=== PATIENT | female | born 1985 | race Caucasian/White ===

== ENCOUNTER → 2021-02-04 | Outpatient (CLI) | payer MEDICARE, MEDICAID ==
[~2021-02-04] MED LIST: BENZ1TAB7 PO; CYCL-394 PO; HYDR200T84 PO; PNV1TABL7 PO
== END | disposition home or self-care (01) ==
LOC: VAS 15:01
PROVIDERS: ATTEND Family Medicine
DX: R60.0 Localized edema (principal)
CPT/HCPCS: 93970

== ENCOUNTER 2021-09-26 17:01 | Emergency (ER) | payer MEDICARE, MEDICAID ==
[~2021-09-26] VITALS: Ht 170.2 cm; Wt 127.3 kg
[2021-09-26] MEDS ORDERED: normal saline 1000ML IV soln IV ONE (17:30)
[2021-09-26 17:56] LABS: BASOPHILS % (AUTO) 0.4 % (0-1); EOSINOPHILS % (AUTO) 0.2 % (0-6); HEMATOCRIT 28.1 % (35.0-45.0); HEMOGLOBIN 9.5 g/dl (12.0-16.0); MEAN CORPUSCULAR HEMOGLOBIN 33.2 PG (27.0-31.0); MEAN CORPUSCULAR VOLUME 97.6 FL (78-98); MEAN PLATELET VOLUME 8.6 FL (7.4-10.4); MONOCYTES # (AUTO) 0.9 X10'3 (0-0.9); MONOCYTES % (AUTO) 14.1 % (2-12); NEUTROPHILS # (AUTO) 4.3 X10'3 (1.8-7.7); NEUTROPHILS % (AUTO) 69.3 % (42-75); PLATELET COUNT 103 X10'3 (140-440); RED BLOOD COUNT 2.88 X10'6 (4.20-5.60); RED CELL DISTRIBUTION WIDTH 20.1 % (11.5-14.5); WHITE BLOOD COUNT 6.2 X10'3 (4.5-11.0)
[2021-09-26 18:19] LABS: ALANINE AMINOTRANSFERASE 58 U/L (12-78); ALBUMIN 2.7 G/DL (3.4-5.0); ALKALINE PHOSPHATASE 112 IU/L (46-116); ANION GAP 15 (8-16); ASPARTATE AMINO TRANSFERASE 234 U/L (10-37); BILIRUBIN,TOTAL 10.5 MG/DL (0.1-1.0); BLOOD UREA NITROGEN 10 MG/DL (7-18); BUN/CREATININE RATIO 13.2 (6.6-38.0); CALCIUM 8.6 MG/DL (8.5-10.1); CHLORIDE 87 MMOL/L (99-107); CREATININE 0.76 MG/DL (0.40-0.90); ETHANOL 0.191 GM/DL (0.0-0.010); GLUCOSE 77 MG/DL (70-104); SODIUM 133 MMOL/L (135-145); TOTAL CARBON DIOXIDE 31.3 MMOL/L (24-32); eGFR 86 ML/MIN
[2021-09-26 18:22] LABS: ALBUMIN/GLOBULIN RATIO 0.5 (1.1-1.5); TOTAL PROTEIN 8.6 G/DL (6.4-8.2)
[2021-09-26 18:27] LABS: POTASSIUM 2.8 MMOL/L (3.5-5.1)
--- NOTE | 2021-09-26 18:27 | NUR ---
patient has a critical low k+2.8
[2021-09-26 20:28] LABS: PLATELET ESTIMATE DECREASED
[2021-09-26 20:29] LABS: ANISOCYTOSIS 3+
[2021-09-26 20:30] LABS: POLYCHROMASIA FEW; TARGET CELLS FEW; TEAR DROP CELLS FEW
[2021-09-26 20:42] LABS: CLARITY,URINE SLIGHTLY CLOUDY (Clear); GLUCOSE, URINE 100 mg/dl (Neg); KETONES,URINE 15 mg/dl (Neg); LEUKOCYTE ESTERASE ,URINE NEGATIVE (Neg); OCCULT BLOOD,URINE NEGATIVE (Neg); PROTEIN,URINE 100 mg/dl (Neg); UROBILINOGEN,URINE >=8.0 E.U/dL (0.2-1.0)
[2021-09-26 20:52] LABS: COLOR,URINE DARK YELLOW (Yellow); UA COLLECTION TYPE NON-SPECIFIED
[2021-09-26 20:54] LABS: URINE AMPHETAMINE SCREEN NEGATIVE (Neg); URINE BARBITUATE SCREEN NEGATIVE (Neg); URINE BENZODIAZEPINES SCREEN NEGATIVE (Neg); URINE CANNABINOID SCREEN POSITIVE (Neg); URINE COCAINE SCREEN NEGATIVE (Neg); URINE METHADONE SCREEN NEGATIVE (Neg); URINE OPIATE SCREEN NEGATIVE (Neg); URINE PHENCYCLIDINE SCREEN NEGATIVE (Neg)
[2021-09-26 20:56] LABS: NITRITES, URINE NEGATIVE (Neg)
[2021-09-26 20:58] LABS: BACTERIA,URINE 1+ /HPF (Neg); WBC,URINE 0-4 /HPF (0-4)
[2021-09-26 20:59] LABS: MUCUS STRANDS FEW /LPF (Neg); SQUAMOUS EPITHELIAL CELL,UR MANY /LPF (FEW); TRANSITIONAL EPI CELLS,URINE FEW /HPF
[2021-09-26] MEDS ORDERED: LIDOcaine 1% W/epiNEPHrine 1:200,000 10ml vial IJ ONE (21:10)
[2021-09-26] MEDS ORDERED: LIDOcaine 1% w/EPI 1:100,000 30ml vial (MDV) IJ ONE (21:10)
[2021-09-26] MEDS ORDERED: pantoprazole 40MG/NS 100ML BAG 100 ML IV STA ×3 (21:23→21:28)
[2021-09-26] MEDS ORDERED: pantoprazole 40MG/NS 100ML BAG 100 ML IV SCH (21:29)
[2021-09-26] MEDS ORDERED: LIDOCAINE 2% w/EPI 1:100:000 30mL injection MDV**cath lab 1 only INJ ONE (21:30)
--- NOTE | 2021-09-26 22:34 | NUR ---
placed pat on 2L NC - O2 dropping to 88-90% while lying down, pt states she uses a CPAP.
[2021-09-26] MEDS: potassium Cl 10 mEq/100mL bag IV SCH (23:00)
[2021-09-27] MEDS: potassium Cl 10 mEq/100mL bag IV SCH
[2021-09-27] MEDS ORDERED: potassium chloride 10mEq ER tablet PO ONE (00:15)
[2021-09-27 00:38] VITALS: BP 112/78
[2021-09-28] MEDS ORDERED: POTA-188 PO (17:56)
[2021-10-01] MEDS ORDERED: PRAZ1CAP5 PO (01:45)
[2021-10-01] MEDS ORDERED: DULO30CA52 PO (01:45)
[2021-10-01] MEDS ORDERED: HYDR-3686 PO (01:45)
[2021-10-01] MEDS ORDERED: PANT20TA18 PO (01:45)
[2021-10-01] MEDS ORDERED: LURA60TA PO (01:45)
[2021-10-01] MEDS ORDERED: TRAZ150T78 PO (01:45)
[2021-10-01] MEDS ORDERED: FURO40TA4 PO (01:45)
== END 2021-09-27 00:41 | disposition home or self-care (01) ==
LOC: ER 17:02
DX: S01.81XA Laceration without foreign body of other part of head, initial encounter (principal); R53.1 Weakness; K92.0 Hematemesis; K92.1 Melena; D64.9 Anemia, unspecified; F12.90 Cannabis use, unspecified, uncomplicated; Z72.89 Other problems related to lifestyle; Z91.048 Other nonmedicinal substance allergy status; Z79.899 Other long term (current) drug therapy; W18.2XXA Fall in (into) shower or empty bathtub, initial encounter; Y93.89 Activity, other specified; Y92.89 Other specified places as the place of occurrence of the external cause; Y99.8 Other external cause status
CPT/HCPCS: 12002; 36415; 70450; 70486; 80053; 80305; 80320; 81001; 82140; 82948; 85008; 85025; 85610; 86885; 86900; 86901; 93005; 96361; 96365; 96366; 96376; 99285; C9113; J3490; J7030; 96374

== ENCOUNTER 2021-09-28 12:41 | Emergency (ER) | payer MEDICARE, MEDICAID ==
[~2021-09-28] VITALS: Ht 170.2 cm; Wt 127.3 kg
[2021-09-28 14:00] LABS: BASOPHILS % (AUTO) 0.3 % (0-1); EOSINOPHILS % (AUTO) 0.5 % (0-6); HEMATOCRIT 27.8 % (35.0-45.0); HEMOGLOBIN 9.3 g/dl (12.0-16.0); LYMPHOCYTES # (AUTO) 0.8 X10'3 (1.1-4.8); LYMPHOCYTES % (AUTO) 10.9 % (21-51); MEAN CORPUSCULAR HEMOGLOBIN 32.7 PG (27.0-31.0); MEAN CORPUSCULAR HGB CONC 33.4 g/dL (33.0-36.5); MEAN CORPUSCULAR VOLUME 98.2 FL (78-98); MEAN PLATELET VOLUME 8.7 FL (7.4-10.4); MONOCYTES # (AUTO) 0.9 X10'3 (0-0.9); MONOCYTES % (AUTO) 12.2 % (2-12); NEUTROPHILS # (AUTO) 5.7 X10'3 (1.8-7.7); NEUTROPHILS % (AUTO) 76.1 % (42-75); PLATELET COUNT 110 X10'3 (140-440); RED BLOOD COUNT 2.83 X10'6 (4.20-5.60); RED CELL DISTRIBUTION WIDTH 21.6 % (11.5-14.5); WHITE BLOOD COUNT 7.4 X10'3 (4.5-11.0)
[2021-09-28 14:19] LABS: ALANINE AMINOTRANSFERASE 62 U/L (12-78); ALBUMIN 2.8 G/DL (3.4-5.0); ALKALINE PHOSPHATASE 113 IU/L (46-116); ANION GAP 20 (8-16); ASPARTATE AMINO TRANSFERASE 224 U/L (10-37); BILIRUBIN,TOTAL 11.7 MG/DL (0.1-1.0); BLOOD UREA NITROGEN 11 MG/DL (7-18); BUN/CREATININE RATIO 15.7 (6.6-38.0); CALCIUM 8.6 MG/DL (8.5-10.1); CHLORIDE 86 MMOL/L (99-107); GLUCOSE 58 MG/DL (70-104); LIPASE 652 U/L (73-393); MAGNESIUM 1.4 MG/DL (1.5-2.4); SODIUM 131 MMOL/L (135-145); TOTAL CARBON DIOXIDE 25.2 MMOL/L (24-32); eGFR > 90 ML/MIN
[2021-09-28 14:20] LABS: ALBUMIN/GLOBULIN RATIO 0.4 (1.1-1.5); TOTAL PROTEIN 9.1 G/DL (6.4-8.2)
[2021-09-28 14:23] LABS: POTASSIUM 2.9 MMOL/L (3.5-5.1)
[2021-09-28 14:26] LABS: ANISOCYTOSIS 3+; PLATELET ESTIMATE DECREASED; TARGET CELLS 1+
[2021-09-28] MEDS ORDERED: potassium Cl 20 mEq SR tablet PO STA (15:51)
[2021-09-28] MEDS ORDERED: normal saline 1000ML IV soln IVB ONE (15:55)
[2021-09-28 16:02] LABS: CLARITY,URINE CLOUDY (Clear); COLOR,URINE ORANGE (Yellow); UA COLLECTION TYPE NON-SPECIFIED
[2021-09-28 16:09] LABS: BACTERIA,URINE 3+ /HPF (Neg); HYALINE CASTS >30 /LPF (NEGATIVE); MUCUS STRANDS MANY /LPF (Neg); SQUAMOUS EPITHELIAL CELL,UR MANY /LPF (FEW); TRANSITIONAL EPI CELLS,URINE MANY /HPF
[2021-09-28 17:32] VITALS: BP 119/54
[2021-09-28] MEDS ORDERED: POTA-188 PO (17:56)
[2021-10-01] MEDS ORDERED: PRAZ1CAP5 PO (01:45)
[2021-10-01] MEDS ORDERED: LURA60TA PO (01:45)
[2021-10-01] MEDS ORDERED: PANT20TA18 PO (01:45)
[2021-10-01] MEDS ORDERED: HYDR-3686 PO (01:45)
[2021-10-01] MEDS ORDERED: FURO40TA4 PO (01:45)
[2021-10-01] MEDS ORDERED: DULO30CA52 PO (01:45)
[2021-10-01] MEDS ORDERED: TRAZ150T78 PO (01:45)
[2021-10-06] MEDS ORDERED: thiamine tablet PO (10:24)
[2021-10-06] MEDS ORDERED: LEVO500T90 PO (10:24)
[2021-10-06] MEDS ORDERED: FOLI1TAB27 PO (10:24)
== END 2021-09-28 18:08 | disposition home or self-care (01) ==
LOC: ER 12:42
DX: E86.0 Dehydration (principal); E87.6 Hypokalemia; D64.9 Anemia, unspecified; R53.1 Weakness; R53.83 Other fatigue; R11.10 Vomiting, unspecified; G89.29 Other chronic pain; F41.9 Anxiety disorder, unspecified; F31.9 Bipolar disorder, unspecified; F12.90 Cannabis use, unspecified, uncomplicated; Z86.19 Personal history of other infectious and parasitic diseases; Z90.49 Acquired absence of other specified parts of digestive tract; Z72.89 Other problems related to lifestyle; Z88.8 Allergy status to other drugs, medicaments and biological substances; Z79.899 Other long term (current) drug therapy
CPT/HCPCS: 36415; 80053; 81001; 82140; 83690; 83735; 85008; 85025; 85610; 93005; 99284; J7030

== ENCOUNTER 2021-10-12 08:47 | Emergency (ER) | payer MEDICARE, MEDICAID ==
[~2021-10-12] VITALS: Ht 170.2 cm; Wt 136.4 kg
[~2021-10-12 08:47] MED LIST changes: -BENZ1TAB7 PO; -CYCL-394 PO; +DULO30CA52 PO; +FOLI1TAB27 PO; +FURO40TA4 PO; +HYDR-3686 PO; +LEVO500T90 PO; +LURA60TA PO; +PANT20TA18 PO; -PNV1TABL7 PO; +PRAZ1CAP5 PO; +TRAZ150T78 PO; +thiamine tablet PO
[2021-10-12 09:03] VITALS: BP 106/58
[2021-10-12 10:52] LABS: BASOPHILS % (AUTO) 0.3 % (0-1); EOSINOPHILS % (AUTO) 0 % (0-6); HEMATOCRIT 28.2 % (35.0-45.0); HEMOGLOBIN 9.3 g/dl (12.0-16.0); LYMPHOCYTES # (AUTO) 0.6 X10'3 (1.1-4.8); LYMPHOCYTES % (AUTO) 10.9 % (21-51); MEAN CORPUSCULAR HEMOGLOBIN 33.3 PG (27.0-31.0); MEAN CORPUSCULAR HGB CONC 33.1 g/dL (33.0-36.5); MEAN CORPUSCULAR VOLUME 100.6 FL (78-98); MEAN PLATELET VOLUME 9.3 FL (7.4-10.4); MONOCYTES # (AUTO) 0.5 X10'3 (0-0.9); NEUTROPHILS # (AUTO) 4.8 X10'3 (1.8-7.7); NEUTROPHILS % (AUTO) 80.8 % (42-75); PLATELET COUNT 95 X10'3 (140-440); RED BLOOD COUNT 2.81 X10'6 (4.20-5.60)
[2021-10-12 11:05] LABS: ANISOCYTOSIS 3+; PLATELET ESTIMATE DECREASED; TARGET CELLS 1+
[2021-10-12 11:06] LABS: HYPOCHROMASIA 1+
[2021-10-12 11:12] LABS: ALANINE AMINOTRANSFERASE 38 U/L (12-78); ALBUMIN 2.3 G/DL (3.4-5.0); ALKALINE PHOSPHATASE 92 IU/L (46-116); ASPARTATE AMINO TRANSFERASE 106 U/L (10-37); BLOOD UREA NITROGEN 9 MG/DL (7-18); BUN/CREATININE RATIO 11.4 (6.6-38.0); CALCIUM 8.9 MG/DL (8.5-10.1); CHLORIDE 94 MMOL/L (99-107); CREATININE 0.79 MG/DL (0.40-0.90); GLUCOSE 96 MG/DL (70-104); POTASSIUM 3.2 MMOL/L (3.5-5.1); SODIUM 132 MMOL/L (135-145); eGFR 82 ML/MIN
[2021-10-12 11:25] LABS: ALBUMIN/GLOBULIN RATIO 0.4 (1.1-1.5); ANION GAP 9 (8-16); BILIRUBIN,TOTAL 5.1 MG/DL (0.1-1.0); TOTAL CARBON DIOXIDE 29.3 MMOL/L (24-32); TOTAL PROTEIN 8.2 G/DL (6.4-8.2)
== END 2021-10-12 11:50 | disposition home or self-care (01) ==
LOC: ER 08:47
DX: R60.0 Localized edema (principal); G89.29 Other chronic pain; F41.9 Anxiety disorder, unspecified; F31.9 Bipolar disorder, unspecified; F12.90 Cannabis use, unspecified, uncomplicated; Z86.19 Personal history of other infectious and parasitic diseases; Z90.49 Acquired absence of other specified parts of digestive tract; Z79.2 Long term (current) use of antibiotics; Z72.89 Other problems related to lifestyle; Z88.8 Allergy status to other drugs, medicaments and biological substances; Z79.899 Other long term (current) drug therapy
CPT/HCPCS: 36415; 80053; 83880; 84484; 85008; 85025; 99284

== ENCOUNTER 2022-01-23 19:47 | Emergency (ER) | payer MEDICARE, MEDICAID ==
[~2022-01-23] VITALS: Ht 170.2 cm; Wt 100.9 kg
[~2022-01-23 19:47] MED LIST changes: -LEVO500T90 PO
[2022-01-23 19:53] VITALS: BP 118/67
== END 2022-01-23 22:57 | disposition left against medical advice (07) ==
LOC: ER 19:48
DX: M79.605 Pain in left leg (principal); Z53.21 Procedure and treatment not carried out due to patient leaving prior to being seen by health care provider

== ENCOUNTER 2022-03-02 13:03 | Emergency (ER) | payer MEDICARE, MEDICAID ==
[~2022-03-02] VITALS: Ht 170.2 cm; Wt 100.0 kg
[2022-03-02 13:06] VITALS: BP 135/66
[2022-03-02] MEDS ORDERED: bacitracin 15gm ointment TP ONE (14:40)
[2022-03-02] MEDS ORDERED: LIDOcaine Viscous 15ml cup TP STA (14:45)
== END 2022-03-02 15:22 | disposition home or self-care (01) ==
LOC: ER 13:03
DX: S80.211A Abrasion, right knee, initial encounter (principal); F31.9 Bipolar disorder, unspecified; F12.90 Cannabis use, unspecified, uncomplicated; Z91.09 Other allergy status, other than to drugs and biological substances; Z90.49 Acquired absence of other specified parts of digestive tract; W19.XXXA Unspecified fall, initial encounter; Y93.89 Activity, other specified; Y92.89 Other specified places as the place of occurrence of the external cause; Y99.8 Other external cause status
CPT/HCPCS: 99284

== ENCOUNTER 2022-06-20 23:55 | Emergency (ER) | payer MEDICARE, MEDICAID ==
[~2022-06-20] VITALS: Ht 170.2 cm; Wt 109.1 kg
[2022-06-21] MEDS ORDERED: LIDOCAINE 1%/EPI 1:100,000 inj. 10 ML multi-dose vial IJ ONE (00:10)
[2022-06-21 00:12] VITALS: BP 160/91
[2022-06-21] MEDS ORDERED: TETanus/Pertussis (Acell)/Diphther VAC/PF (Tdap-Adult) 0.5ml syringe IMVAC ONE (00:25)
[2022-06-21] MEDS ORDERED: ondansetron 4mg rapidly disintigrating tab PO ONE (00:50)
== END 2022-06-21 01:30 | disposition home or self-care (01) ==
LOC: ER 23:56
DX: S91.312A Laceration without foreign body, left foot, initial encounter (principal); G89.29 Other chronic pain; F31.9 Bipolar disorder, unspecified; F12.90 Cannabis use, unspecified, uncomplicated; Z91.09 Other allergy status, other than to drugs and biological substances; Z90.49 Acquired absence of other specified parts of digestive tract; X58.XXXA Exposure to other specified factors, initial encounter; Y93.89 Activity, other specified; Y92.89 Other specified places as the place of occurrence of the external cause; Y99.8 Other external cause status
CPT/HCPCS: 12001; 73630; 90471; 90715; 99283; A6446; A6449

== ENCOUNTER 2022-07-29 02:47 | Emergency (ER) | payer MEDICARE, MEDICAID ==
[~2022-07-29] VITALS: Ht 170.2 cm; Wt 85.0 kg
[2022-07-29] MEDS ORDERED: LIDOCAINE 2%/EPI 1:100,000 inj. Multi-dose 20 ML VIAL IJ ONE (03:15)
[2022-07-29 03:38] LABS: BASOPHILS % (AUTO) 0.7 % (0-1); EOSINOPHILS # (AUTO) 0.2 X10'3 (0-0.9); EOSINOPHILS % (AUTO) 2.9 % (0-6); HEMATOCRIT 40.6 % (35.0-45.0); HEMOGLOBIN 13.9 g/dl (12.0-16.0); LYMPHOCYTES # (AUTO) 1.2 X10'3 (1.1-4.8); LYMPHOCYTES % (AUTO) 17.8 % (21-51); MEAN CORPUSCULAR HEMOGLOBIN 32.8 PG (27.0-31.0); MEAN CORPUSCULAR HGB CONC 34.1 g/dL (33.0-36.5); MEAN CORPUSCULAR VOLUME 96.2 FL (78-98); MEAN PLATELET VOLUME 7.4 FL (7.4-10.4); MONOCYTES # (AUTO) 0.7 X10'3 (0-0.9); MONOCYTES % (AUTO) 10.4 % (2-12); NEUTROPHILS # (AUTO) 4.7 X10'3 (1.8-7.7); NEUTROPHILS % (AUTO) 68.2 % (42-75); PLATELET COUNT 154 X10'3 (140-440); RED BLOOD COUNT 4.22 X10'6 (4.20-5.60)
[2022-07-29 03:49] LABS: ALANINE AMINOTRANSFERASE 33 U/L (12-78); ALBUMIN 3.7 G/DL (3.4-5.0); ALBUMIN/GLOBULIN RATIO 0.6 (1.1-1.5); ALKALINE PHOSPHATASE 147 IU/L (46-116); ANION GAP 8 (8-16); ASPARTATE AMINO TRANSFERASE 73 U/L (10-37); BLOOD UREA NITROGEN 9 MG/DL (7-18); BUN/CREATININE RATIO 12.9 (6.6-38.0); CALCIUM 8.8 MG/DL (8.5-10.1); CHLORIDE 102 MMOL/L (99-107); ETHANOL 0.228 GM/DL (0.0-0.010); GLUCOSE 119 MG/DL (70-104); POTASSIUM 3.6 MMOL/L (3.5-5.1); SODIUM 137 MMOL/L (135-145); TOTAL CARBON DIOXIDE 26.7 MMOL/L (24-32); TOTAL PROTEIN 9.8 G/DL (6.4-8.2); eGFR > 90 ML/MIN
[2022-07-29 03:50] LABS: ACETAMINOPHEN < 2.0 UG/ML (10-30)
[2022-07-29 04:30] LABS: URINE HCG NEGATIVE (NEG)
[2022-07-29 04:42] LABS: URINE AMPHETAMINE SCREEN NEGATIVE (Neg); URINE BARBITUATE SCREEN NEGATIVE (Neg); URINE BENZODIAZEPINES SCREEN NEGATIVE (Neg); URINE CANNABINOID SCREEN POSITIVE (Neg); URINE COCAINE SCREEN NEGATIVE (Neg); URINE METHADONE SCREEN NEGATIVE (Neg); URINE OPIATE SCREEN NEGATIVE (Neg); URINE PHENCYCLIDINE SCREEN NEGATIVE (Neg)
[2022-07-29 06:15] VITALS: BP 133/89
--- NOTE | 2022-07-29 11:30 | NUR ---
Pt tearfully asking for Mental Health to talk w/ her. Repeatedly asking to go home, due to needing to take care of her children and her needing to go to work. Packet sent to [facility].
[2022-07-29] MEDS ORDERED: PROP40TA72 PO (12:20)
[2022-07-29] MEDS ORDERED: POTA-192 PO (12:20)
[2022-07-29] MEDS ORDERED: SPIR50TA5 PO (12:20)
--- NOTE | 2022-07-29 12:52 | NUR ---
PT APPEARS TO BE SLEEPING ON LEFT SIDE IN ROOM. PT HAS NO NEEDS AT THIS TIME. WILL CONTINUE TO [facility].
--- NOTE | 2022-07-29 13:25 | NUR ---
Pt continues to tearfully request [facility] for same as previous.
[2022-07-29] MEDS ORDERED: propranolol 40mg tablet PO SCH (14:00)
--- NOTE | 2022-07-29 14:09 | NUR ---
pt requested to text family member on personal phone, tech allowed this by taking pt phone out of belongings bags and allowing them to use it. pt phone case is their wallet as well. tech had the phone/wallet placed into the safe by registration.
--- NOTE | 2022-07-29 14:30 | NUR ---
Pt brought to [facility] from main ER and is in bed resting at this time.
--- NOTE | 2022-07-29 15:06 | NUR ---
Pt is meeting with [facility] Clinician at this time.
--- NOTE | 2022-07-29 15:34 | NUR ---
Pt was not held on 5150 by [facility]. Belongings returned to her from registration and belongings. Pt given discharge instructions and she understands her discharge plan. Pt escorted out of ER to picking her up.
[2022-07-29] MEDS ORDERED: hydroxychloroquine 200mg tablet PO SCH (20:00)
[2022-07-29] MEDS ORDERED: traZODone 150mg tablet PO SCH (21:00)
[2022-07-29] MEDS ORDERED: lurasidone 60mg tablet PO SCH (21:00)
[2022-07-29] MEDS ORDERED: duloxetine 30mg CAPSULE.DR PO SCH (21:00)
[2022-07-29] MEDS ORDERED: prazosin 1mg capsule PO SCH (21:00)
[2022-07-30] MEDS ORDERED: spironolactone 50 MG tablet PO SCH (08:00)
== END 2022-07-29 16:00 | disposition home or self-care (01) ==
LOC: ER 02:47
DX: S61.512A Laceration without foreign body of left wrist, initial encounter (principal); Z20.822 Contact with and (suspected) exposure to COVID-19; R45.851 Suicidal ideations; G89.29 Other chronic pain; F41.9 Anxiety disorder, unspecified; F31.9 Bipolar disorder, unspecified; F12.90 Cannabis use, unspecified, uncomplicated; Z86.19 Personal history of other infectious and parasitic diseases; Z90.49 Acquired absence of other specified parts of digestive tract; Z72.89 Other problems related to lifestyle; Z88.8 Allergy status to other drugs, medicaments and biological substances; Z79.899 Other long term (current) drug therapy; X58.XXXA Exposure to other specified factors, initial encounter; Y93.89 Activity, other specified; Y92.89 Other specified places as the place of occurrence of the external cause; Y99.8 Other external cause status
CPT/HCPCS: 12001; 36415; 80053; 80305; 80320; 80329; 81025; 85025; 87811; 99283; 99285; A6449